=== PATIENT | male | born 1985 | race Caucasian/White ===

== ENCOUNTER 2017-06-14 23:49 | Emergency (ER) | payer BC, OTHER ==
[~2017-06-14] VITALS: Ht 177.8 cm; Wt 108.9 kg
[2017-06-15] MEDS ORDERED: ADDERALL 20 MG20 MG PO (00:14)
[2017-06-15 01:02] LABS: ABSOLUTE NEUTROPHILS 10.3 thou/uL (1.4-8.2); BASOPHILS 0.4 % (0.0-2.0); EOSINOPHILS 0.7 % (0.0-3.0); HEMATOCRIT 37.4 % (42.0-52.0); HEMOGLOBIN 12.6 gm/dL (14.0-18.0); MCH 28.9 pg (26.0-34.0); MCHC 33.6 g/dL (28.0-37.0); MCV 86.1 fL (80.0-100.0); MONOCYTES 8.7 % (1.0-8.0); PLATELET COUNT 307 thou/uL (150-400); POLYS 79.2 % (36.0-66.0); RBC 4.35 mil/uL (4.50-6.00); RDW 12.2 % (10.5-14.5)
[2017-06-15 01:09] LABS: CALCIUM 8.7 mg/dL (8.5-10.1); CREATININE 1.1 mg/dL (0.7-1.3); POTASSIUM 3.8 mmol/L (3.5-5.1)
[2017-06-15] MEDS ORDERED: LIDOCAINE 2%2 %/5 GM RECTAL (04:13)
[2017-06-15] MEDS ORDERED: BACTRIM DS TAB1 EACH PO (04:13)
[2017-06-15 04:40] VITALS: BP 128/78
== END 2017-06-15 04:41 | disposition home or self-care (01) ==
LOC: ER 23:49
PROVIDERS: Emergency Medicine
DX: L02.215 Cutaneous abscess of perineum (principal); F17.210 Nicotine dependence, cigarettes, uncomplicated